=== PATIENT | female | born 1970 | race Caucasian/White ===

== ENCOUNTER 2020-10-15 07:54 | Day surgery (SDC) | payer OTHER ==
[~2020-10-15 07:54] MED LIST: PROPOFOL INJ 200 MG/20 ML VIAL IV ONE
[2020-10-15 10:08] VITALS: BP 103/49
--- NOTE | 2020-10-15 10:50 | Operative Report ---
Operative Report DATE OF SURGERY: 10/15/20 Operative Report: The risk, benefits and alternatives of the procedure including the risk of bleeding, perforation requiring surgery have been explained to the patient in detail and informed consent has been obtained. Patient is placed in left, lateral decubital position. Timeout was called. Propofol medication is administered. Rectal examination is done which did not reveal any masses, tears or fissures. An Olympus videoscope was introduced into the patient's rectum. Scope was then carefully advanced all the way to the cecum. Cecum was identified by the usual anatomical landmarks including the ileocecal valve as well as the appendiceal office. Photodocumentation is obtained. Scope was then sequentially pulled back via the various segments of the colon including the ascending colon, hepatic flexure, transverse colon, splenic flexure, descending colon and finally in to the rectosigmoid portions of the colon. Retroflexion maneuver is performed. PREOPERATIVE DIAGNOSIS: Colorectal cancer screening. Previous history of possible diverticulitis POSTOPERATIVE DIAGNOSIS: Mild diverticulosis noted in the sigmoid area. No association with current diverticulitis. Internal hemorrhoids. Mild inflammation noted on the right side of the colon status post biopsy OPERATION: Colonoscopy with biopsy SURGEON: SCOTT INMAN ANESTHESIA: LMAC TISSUE REMOVED OR ALTERED: As noted above. COMPLICATIONS: None. ESTIMATED BLOOD LOSS: None. INTRAOPERATIVE FINDINGS: As noted above. PROCEDURE: Patient tolerated the procedure well. No immediate postprocedure complications are noted. Patient is discharged in good condition. Discharge date 10/15/2020 Discharge diet: Regular. Discharge activity: Regular. 2 to 3-week follow-up to discuss findings. Patient is instructed to call the office or proceed to the emergency room should there be any further problems or questions. Wait on the pathology. 5 to 7-year surveillance colonoscopy.
== END 2020-10-15 10:40 | disposition home or self-care (01) ==
LOC: OROUT 07:54
PROVIDERS: ATTEND Internal Medicine Gastroenterology
DX: K57.30 Diverticulosis of large intestine without perforation or abscess without bleeding (principal); K52.9 Noninfective gastroenteritis and colitis, unspecified; K64.8 Other hemorrhoids; H91.90 Unspecified hearing loss, unspecified ear; Z79.899 Other long term (current) drug therapy; Z96.21 Cochlear implant status
CPT/HCPCS: 45380; 88305 ×2; 00812; J2704; 812